=== PATIENT | male | born 1980 ===

== ENCOUNTER 2017-12-20 00:59 | Emergency (ER) | payer BC, MEDICAID ==
[2017-12-20 01:14] VITALS: TEMP 98
[2017-12-20 01:49] LABS: BASO # 0.1 K/uL (0.0-0.2); BASO % 0.7 % (0.0-2.0); EOS # 0.1 K/uL (0.0-0.7); HEMOGLOBIN 13.1 g/dL (12.0-18.0); LYMPH # 2.4 K/uL (1.0-4.3); LYMPH % 27.7 % (20.0-40.0); MEAN CELL VOLUME 86.1 fl (80.0-94.0); MEAN CORPUSCULAR HEMOGLOBIN 29.1 pg (27.0-31.0); MEAN CORPUSCULAR HGB CONC 33.8 g/dL (33.0-37.0); MEAN PLATELET VOLUME 8.2 fl (7.2-11.7); MONO # 1.2 K/uL (0.0-0.8); MONO % 13.3 % (0.0-10.0); NEUT % 57.3 % (50.0-75.0); NRBC % 0.2 % (0.0-0.0); RBC 4.52 Mil/uL (4.40-5.90); RED CELL DISTRIBUTION WIDTH 13.6 % (11.5-14.5); WHITE BLOOD COUNT 8.7 K/uL (4.8-10.8)
[2017-12-20 01:56] LABS: BLOOD UREA NITROGEN 10 mg/dl (9-20); CALCIUM 9.7 mg/dL (8.4-10.2); GFR NON-AFRICAN AMERICAN > 60
[2017-12-20 01:58] VITALS: RESP 16
--- NOTE | 2017-12-20 02:39 | ED PDOC ---
HPI: Chest Pain Time Seen by Provider: 12/20/17 01:14 Chief Complaint (Nursing): Chest Pain Chief Complaint (Provider): Chest pain History Per: Patient History/Exam Limitations: no limitations Onset/Duration Of Symptoms: Days Current Symptoms Are (Timing): Still Present Quality: Sharp, "Pain" Additional History Per: Patient Additional Complaint(s): 37yo male, otherwise well, comes to ER reporting for the past 2-3 days, he has been experiencing a sharp misternal chest pain, exacerbated by eating and laying flat. Patient states the pain is non-radiating and associated with difficulty breathing. He denies any cough, fevers or known family history of cardiac disease. No other complaints. PMD: None Past Medical History Reviewed: Historical Data, Nursing Documentation, Vital Signs Vital Signs: Last Vital Signs Temp 98 F 12/20/17 01:12 Pulse 68 12/20/17 01:57 Resp 16 12/20/17 01:57 BP 123/72 12/20/17 01:57 Pulse Ox 99 12/20/17 01:57 - Medical History PMH: No Chronic Diseases - Surgical History Surgical History: No Surg Hx - Family History Family History: Denies: [place], CAD, Hypertension - Immunization History Hx Tetanus Toxoid Vaccination: Yes (<5 yrs) Hx Influenza Vaccination: No Hx Pneumococcal Vaccination: No - Home Medications Home Medications: Ambulatory Orders Medication Instructions Recorded Omeprazole 20 mg PO DAILY #30 capsule. 12/20/17 - Allergies Allergies/Adverse Reactions: Allergies Allergy/AdvReac Type Severity Reaction Status Date / Time No Known Allergies Allergy Verified 12/20/17 01:11 Review of Systems ROS Statement: Except As Marked, All Systems Reviewed And Found Negative Constitutional: Negative for: Fever, Chills Cardiovascular: Positive for: Chest Pain Respiratory: Positive for: Other (difficutly breathing). Negative for: Cough Physical Exam - Reviewed Nursing Documentation Reviewed: Yes Vital Signs Reviewed: Yes - Physical Exam Appears: Positive for: Non-toxic, No Acute Distress Head Exam: Positive for: ATRAUMATIC, NORMAL INSPECTION, NORMOCEPHALIC Skin: Positive for: Normal Color Eye Exam: Positive for: Normal appearance Neck: Positive for: Normal, Supple Cardiovascular/Chest: Positive for: Regular Rate, Rhythm, Chest Non Tender. Negative for: Murmur Respiratory: Positive for: Normal Breath Sounds Gastrointestinal/Abdominal: Positive for: Normal Exam, Soft Back: Positive for: Normal Inspection Extremity: Positive for: Normal ROM. Negative for: Pedal Edema Neurologic/Psych: Positive for: Alert, Oriented. Negative for: Motor/Sensory Deficits - Laboratory Results Result Diagrams: 12/20/17 01:42 12/20/17 01:42 - ECG O2 Sat by Pulse Oximetry: 99 (RA) Pulse Ox Interpretation: Normal Medical Decision Making Medical Decision Making: Assessment: 37yo male, with atypical chest pain Based on symptoms, unlikely to be due to cardiac etiology GERD vs. Gastritis vs. Peptic ulcer disease Plan: * Labs * EKG * Chest x-ray * Pepcid 40mg IVP 0226 Labs reviewed, with no acute findings. Patient reports feeling much better, very well appearing Patient to be started on PPI and is stable for discharge home. Instructed to follow up with [facility] in 2-3 days. Scribe Attestation: Documented by Albina Canela, acting as a scribe for Jatinder Sierra MD. Provider Scribe Attestation: All medical record entries made by the Scribe were at my direction and personally dictated by me. I have reviewed the chart and agree that the record accurately reflects my personal performance of the history, physical exam, medical decision making, and the department course for this patient. I have also personally directed, reviewed, and agree with the discharge instructions and disposition. Disposition - Clinical Impression Clinical Impression: Atypical chest pain - Disposition Referrals: Angela Tee [Outside] Disposition: Routine/Home Disposition Time: 02:44 Condition: STABLE Prescriptions: Omeprazole 20 mg PO DAILY #30 capsule. Instructions: Chest Pain That Is Not Caused by the Heart (DC) Forms: [employer] ([place]amanian) Print Language: [place]APOREAN
[2017-12-20 07:24] VITALS: BP 121/63; PULSE 80; O2SAT 100
--- NOTE | 2017-12-20 12:42 | RAD ---
Date of service: 12/20/2017 HISTORY: cp COMPARISON: No prior. TECHNIQUE: Chest PA and lateral FINDINGS: LUNGS: No active pulmonary disease. PLEURA: No significant pleural effusion identified. No pneumothorax apparent. CARDIOVASCULAR: Normal. OSSEOUS STRUCTURES: No significant abnormalities. VISUALIZED UPPER ABDOMEN: Normal. OTHER FINDINGS: None. IMPRESSION: No active disease.
--- NOTE | 2017-12-20 14:39 | CARD ---
APPROVED REPORT Date of service: 12/20/2017 EKG Measurement Heart [id number] <Conclusion> Normal sinus rhythm Possible Left atrial enlargement Incomplete right bundle branch block Borderline ECG
== END 2017-12-20 03:20 | disposition home or self-care (01) ==
LOC: H.ER 00:59
DX: R07.89 Other chest pain (principal)